=== PATIENT | male | born 1955 | race Hispanic/Latino ===

== ENCOUNTER 2018-01-10 10:03 | Outpatient (CLI) | payer OTHER ==
--- NOTE | 2018-01-10 16:15 | XRay Report ---
FINAL REPORT PROCEDURE: XR KNEE 1-2V RT TECHNIQUE: Right knee radiographs, AP and lateral views. HISTORY: VISION PROBLEMS, RHEUMATOID ARTHRITIS IN HANDS, FINGERS AND KNEES COMPARISON: No prior studies are available for comparison. FINDINGS: Fracture (s) and/or Dislocation(s): None . Joint space(s): Normal. Soft tissues: The patellar tendon shadow is thicker than expected. I cannot exclude tendinosis. Bone mineralization: Normal. Foreign bodies: None. IMPRESSION: Mild prominence patellar tendon as described. No other abnormality is seen.
--- NOTE | 2018-01-10 16:21 | XRay Report ---
FINAL REPORT PROCEDURE: XR HAND 2V LT TECHNIQUE: LEFT hand radiographs, AP and lateral views. CPT [id number] HISTORY: VISION PROBLEMS, RHEUMATOID ARTHRITIS IN HANDS, FINGERS AND KNEES COMPARISON: No prior studies are available for comparison. FINDINGS: There is narrowing of the DIP joints of the index and middle finger and also the PIP joints. There is marginal osteophytic spurring involving the DIP joints. Periarticular erosions seen at the PIP joints of each finger. Mild osteoarthritic changes are seen at the interphalangeal joint and MCP joint of the thumb. There is ulnar deviation of the middle phalanx of the middle finger and radial deviation of the distal phalanx. There is mild ulnar deviation of the middle phalanx of the little finger. Yes. No acute bony abnormalities are identified. 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 No acute bony abnormalities are identified..
--- NOTE | 2018-01-10 16:23 | XRay Report ---
FINAL REPORT PROCEDURE: XR SPINE LUMBOSACRAL 2-3V TECHNIQUE: Lumbar spine radiographs, including AP, lateral, and lumbosacral spot views. CPT 19114 HISTORY: VISION PROBLEMS, RHEUMATOID ARTHRITIS IN HANDS, FINGERS AND KNEES COMPARISON: No prior studies are available for comparison. FINDINGS: No fracture or subluxation is visualized. There is mild lumbar scoliosis convex the left apex at L3. Height of the disc spaces is well preserved. Small marginal osteophytic spurs project T12-L1 through the L4-L5 disc space consistent with mild degenerative disc disease. Posterior elements are intact. Mild osteoarthritic changes seen lower lumbar articular facets and SI joints. IMPRESSION: Mild lumbar scoliosis. Degenerative disc disease and facet arthritis as described. Mild osteoarthritic changes also seen in the SI joints bilaterally..
== END 2018-01-10 10:04 | disposition home or self-care (01) ==
LOC: XRAY 10:03
PROVIDERS: ATTEND Internal Medicine
DX: M51.37 Other intervertebral disc degeneration, lumbosacral region (principal); M06.9 Rheumatoid arthritis, unspecified; H53.9 Unspecified visual disturbance; M41.86 Other forms of scoliosis, lumbar region; M19.90 Unspecified osteoarthritis, unspecified site
CPT/HCPCS: 72100

== ENCOUNTER 2021-03-25 06:01 | Day surgery (SDC) | payer MEDICARE, OTHER ==
[2021-03-25] MEDS ORDERED: ASPIRIN EC 325 MG TAB PO ONE (06:16)
[2021-03-25 06:42] LABS: INR 0.91 (0.87-1.13)
[2021-03-25] MEDS ORDERED: HEPARIN/NS 5000 UNIT/500ML 1,000 ML IR ONE (06:55)
[2021-03-25] MEDS ORDERED: SODIUM CHLORIDE 0.9% 500 ML 500 ML IV SCH (07:00)
[2021-03-25] MEDS: fentaNYL 100 MCG/2 ML INJ ONE ×2 (07:48→07:53)
[2021-03-25] MEDS: LIDOCAINE (2%) 20 MG/1 ML VIAL 20 ML MDV INFILTRATI ONE ×2 (07:48→07:58)
[2021-03-25] MEDS: MIDAZOLAM 2 MG/2 ML INJ ONE ×2 (07:48→07:53)
[2021-03-25] MEDS: VERAPAMIL 5 MG/2 ML INJ ONE ×2 (07:49→07:59)
[2021-03-25] MEDS: HEPARIN 10,000 UNITS/10 ML VIAL ONE ×2 (07:49→07:59)
[2021-03-25] MEDS: NITROGLYCERIN SYRINGE 3 ML ONE ×2 (07:50→07:59)
[2021-03-25] MEDS ORDERED: SODIUM CHLORIDE 0.9% 1000 ML 1,000 ML IV SCH (08:30)
[2021-03-25] MEDS ORDERED: HYDROcodone/ACETAMINOPHEN 5-325 MG TAB PO PRN (09:00)
[2021-03-25] MEDS ORDERED: traMADol 50 MG TAB PO PRN (09:00)
--- NOTE | 2021-03-25 11:20 | Electrocardiograph Report ---
[facility] Test Date: 2021-03-25 Test Time: 06:27:04 Pat Name: MISTY CHA Department: Room: Gender: M [employer]ist: DRE : 1955 Requested By: MARIPOSA MATTHEWS Order Number: [id number] Reading MD: Jerod Pitt Measurements Intervals [place] Rate: 91 P: 81 NC: 162 QRS: 66 QRSD: 71 T: 66 QT: 337 QTc: 414 Interpretive Statements Sinus rhythm Ventricular premature complex No previous ECG available for comparison Electronically Signed On 03-25-2021 11:19:35 EDT by Jerod Pitt
[2021-03-25 11:39] VITALS: BP 138/64
--- NOTE | 2021-03-29 08:39 | Operative Report ---
Operative Report Operative Report: Cardiac catheterization report. Pt. prepped in usual sterile fashion. LHC completed via right radial artery. Moderate sedation utilized. TIG cath used for left and right coronaries. Pigtail used for LV gram. TR band used for hemostasis. No immediate complications. Coronary Anatomy. Hemodynamics 133/82 Left Main is mildly calcified and bifurcates into LAD and C/X. No obstructive lesions. LAD mildly calcified without obstructive disease, prominent myocardial bridge in mid-LAD. C/X 30% calcified proximal lesion. RCA small to mid vessel no obstructive disease LVEDP 17, EF 55%, no gradient across valve, no significant . Impression Mid-LAD myocardial bridge No significant CAD Normal LVEF 50-55%
== END 2021-03-25 12:48 | disposition home or self-care (01) ==
LOC: CATHLABREC 06:01
PROVIDERS: ATTEND Internal Medicine Cardiovascular Disease
DX: R93.1 Abnormal findings on diagnostic imaging of heart and coronary circulation (principal); I10 Essential (primary) hypertension; M19.90 Unspecified osteoarthritis, unspecified site; D47.3 Essential (hemorrhagic) thrombocythemia; F32.9 Major depressive disorder, single episode, unspecified; F17.210 Nicotine dependence, cigarettes, uncomplicated; Z79.82 Long term (current) use of aspirin; Z79.899 Other long term (current) drug therapy; Z98.890 Other specified postprocedural states
CPT/HCPCS: 36415; 85610; 85730; 93005; 93458; C1887; C1894; J1644; J2250; J3010; J7040; Q9967